=== PATIENT | female | born 1955 | race Caucasian/White ===

== ENCOUNTER → 2016-10-01 | Outpatient (CLI) | payer BC | LOC: CT 11:02 | DX: R10.9 Unspecified abdominal pain (principal); R11.0 Nausea; R63.0 Anorexia | CPT/HCPCS: J7050; Q9962 ==

== ENCOUNTER 2020-05-18 01:10 | Emergency (ER) | payer BC, OTHER ==
[2020-05-18 01:37] LABS: HEMOGLOBIN 13.6 gm/dl (12.3-15.3); RED BLOOD COUNT 4.6 M/UL (4.00-5.10); WHITE BLOOD COUNT 7.4 K/UL (4.5-11.0)
[2020-05-18 01:49] LABS: BUN/CREATININE RATIO 19 (0-10)
[2020-05-18] MEDS ORDERED: HYDROCODON-ACE1 EAC4 PO (03:14)
[2020-05-18] MEDS ORDERED: FLOMAX 0.4 MG0.4 MG PO (03:16)
[2020-05-18] MEDS ORDERED: ZOFRAN4 MG PO (03:16)
== END 2020-05-18 03:33 | disposition home or self-care (01) ==
LOC: ER1 01:10
PROVIDERS: Physician Assistant
DX: N13.2 Hydronephrosis with renal and ureteral calculous obstruction (principal); Z90.49 Acquired absence of other specified parts of digestive tract
CPT/HCPCS: 36415; 80053; 81001; 85025; 87086; 96374; 96375; 99284; J1885; J2270; J2405

== ENCOUNTER → 2021-01-17 | Outpatient (CLI) | payer BC ==
[~2021-01-17] MED LIST: FLOMAX 0.4 MG0.4 MG PO; HYDROCODON-ACE1 EAC4 PO; ZOFRAN4 MG PO
== END ==
LOC: KOH-I 12:26
DX: M54.9 Dorsalgia, unspecified (principal); M25.50 Pain in unspecified joint; M47.816 Spondylosis without myelopathy or radiculopathy, lumbar region
CPT/HCPCS: 72040; 72070; 72100; 73110; 73130

== ENCOUNTER → 2021-02-19 | Outpatient (CLI) | payer MEDICARE, BC | LOC: EMI 02-12 08:57 | DX: S63.302A Traumatic rupture of unspecified ligament of left wrist, initial encounter (principal); M67.422 Ganglion, left elbow | CPT/HCPCS: 73221 ==

== ENCOUNTER → 2021-03-19 | Outpatient (CLI) | payer MEDICARE, BC | LOC: CT 14:10 | DX: R10.13 Epigastric pain (principal) | CPT/HCPCS: 36415; 74160; 82565; 84520; Q9967 ==

== ENCOUNTER → 2021-05-04 | Outpatient (CLI) | payer MEDICARE, BC | LOC: EMI 04-26 08:00 | DX: M50.31 Other cervical disc degeneration, high cervical region (principal); M47.816 Spondylosis without myelopathy or radiculopathy, lumbar region; M47.817 Spondylosis without myelopathy or radiculopathy, lumbosacral region | CPT/HCPCS: 72141; 72148 ==

== ENCOUNTER → 2021-06-28 | Outpatient (CLI) | payer MEDICARE, BC | LOC: KOH-I 15:28 | DX: M51.16 Intervertebral disc disorders with radiculopathy, lumbar region (principal); M51.17 Intervertebral disc disorders with radiculopathy, lumbosacral region | CPT/HCPCS: 72114 ==

== ENCOUNTER → 2021-11-23 | Outpatient (CLI) | payer MEDICARE, BC | LOC: LAB 14:03 | DX: Z01.812 Encounter for preprocedural laboratory examination (principal) | CPT/HCPCS: 87081 ==